=== PATIENT | male | born 1950 | race Caucasian/White ===

== ENCOUNTER 2022-05-07 17:29 | Emergency (ER) | payer OTHER ==
[2022-05-07] MEDS ORDERED: Ondansetron PF 4 MG/2 ML Vial ONE (18:02)
[2022-05-07] MEDS ORDERED: Sodium Chloride 0.9% 2,000 ML ONE (18:02)
[2022-05-07] MEDS ORDERED: Ketorolac Tromethamine 30 MG/ML VIAL ONE (18:20)
[2022-05-07 18:23] LABS: #Basophils 0.1 thou/uL (0.0-0.2); #Lymphocytes 1.2 thou/uL (1.20-3.40); #Monocytes 1.5 thou/uL (0.11-0.59); #Neutrophils 16.2 thou/uL (1.40-6.50); %Basophils 0.5 % (0.0-1.0); %Lymphocytes 6.5 % (21.0-51.0); %Monocytes 7.8 % (0.0-10.0); %Neutrophils 85.1 % (42.0-75.0); Anisocytosis SLIGHT = 6-15 cells (100X) (0-5/hpf); Hemoglobin 9.6 g/dL (14.0-18.0); Hypochromia SLIGHT = 6-15 cells (100X) (0-5/hpf); MDiff Complete? YES; Mean Corpuscular HGB CONC 30.6 g/dL (32.0-36.0); Mean Corpuscular Hemoglobin 24.8 pg (27.0-31.0); Mean Corpuscular Volume 81.1 fl (78.0-98.0); Mean Platelet Volume 7.2 fL (7.4-10.4); Platelet Count 529 10x3/uL (130-400); Platelet Morphology Comment Appears Increased; RBC Distribution Width 18.9 % (11.5-14.5); Red Blood Cell (RBC) Count 3.85 mill/uL (4.70-6.10)
[2022-05-07 18:26] LABS: ALT (SGPT) 17 U/L (8-55); AST (SGOT) 16 U/L (5-34); Albumin 4.1 g/dL (3.4-4.8); Alkaline Phosphatase 96 U/L (40-110); BUN (Urea Nitrogen) 85 mg/dL (8.4-25.7); Bilirubin, Total 0.4 mg/dL (0.2-1.2); Calc. Creatinine Clearance 0 mL/min (70-130); Calcium 10.1 mg/dL (7.8-10.44); Carbon Dioxide Less than 8 mmol/L (23-31); Chloride 105 mmol/L (98-107); Estimated GFR 9; Globulin 4.3 g/dL (2.4-3.5); Glucose 214 mg/dL (83-110); Potassium 4.5 mmol/L (3.5-5.1); Protein, Total 8.4 g/dL (5.8-8.1); Sodium 135 mmol/L (136-145)
[2022-05-07] MEDS ORDERED: Fentanyl 100 MCG/2 ML VIAL ONE ×2 (18:43→20:24)
[2022-05-07 18:44] LABS: CKMB 1.8 ng/mL (0-6.6)
[2022-05-07] MEDS ORDERED: Sodium Chloride 0.9% 100 ML ONE ×2 (18:44→19:26)
[2022-05-07] MEDS ORDERED: cefTRIAXone\\ROCEPHIN 1 GM VIAL ONE (18:44)
[2022-05-07] MEDS ORDERED: Piperacillin/Tazobactam 4.5 GM VIAL ONE (19:26)
[2022-05-07] MEDS ORDERED: Sodium Chloride 0.9% 1,000 ML ONE (20:00)
[2022-05-07 20:02] LABS: SARS-CoV-2 NAA Rapid Test Not Detected (NotDetected)
== END 2022-05-07 20:46 | disposition short-term general hospital (02) ==
LOC: MADERS 17:29
DX: A41.9 Sepsis, unspecified organism (principal); I31.9 Disease of pericardium, unspecified; N17.9 Acute kidney failure, unspecified; K63.1 Perforation of intestine (nontraumatic); E78.5 Hyperlipidemia, unspecified; I10 Essential (primary) hypertension; F17.210 Nicotine dependence, cigarettes, uncomplicated; Z20.822 Contact with and (suspected) exposure to COVID-19
CPT/HCPCS: 71045; 74176; 80053; 82553; 83605; 84484; 85025; 87040; 93005; 96361; 96365; 96367; 96375; 96376; J0696; J1885; J2405; J2543; J3010; J3490; J7050